=== PATIENT | female | born 1950 | race Asian ===

== ENCOUNTER 2017-08-05 09:45 | Outpatient (RCR) | payer MEDICARE, BC | END 2017-08-24 | disposition home or self-care (01) | LOC: PTY 09:45 | DX: M54.5 Low back pain (principal); G89.29 Other chronic pain | CPT/HCPCS: 97032; 97110; 97140; 97162; G8978; G8979 ==

== ENCOUNTER 2017-08-25 08:29 | Outpatient (RCR) | payer MEDICARE, BC | END 2017-09-24 | disposition home or self-care (01) | LOC: PTY 08:29 | DX: M54.5 Low back pain (principal); G89.29 Other chronic pain | CPT/HCPCS: 97032; 97110; 97140; G0283 ==

== ENCOUNTER 2017-09-29 08:10 | Outpatient (RCR) | payer MEDICARE, BC | END 2017-10-24 | disposition home or self-care (01) | LOC: PTY 08:10 | DX: G89.29 Other chronic pain (principal); M54.40 Lumbago with sciatica, unspecified side | CPT/HCPCS: 97110; 97140; G8978; G8979 ==

== ENCOUNTER 2017-10-26 08:30 | Outpatient (RCR) | payer MEDICARE, BC | END 2017-11-24 | disposition home or self-care (01) | LOC: PTY 08:30 | DX: M54.5 Low back pain (principal); G89.29 Other chronic pain ==